=== PATIENT | male | born 1985 | race Hispanic/Latino ===

== ENCOUNTER 2019-07-05 11:31 | Outpatient (CLI) | payer OTHER ==
--- NOTE | 2019-07-05 16:06 | RAD ---
XR Lumbar Spine 2 Or 3 View History: Back pain Comparison: None. Findings: Posterior spinal fusion hardware at L5-S1. Low-grade dextro scoliosis lumbar spine. Mild narrowing of the L2-3 and L3-4 disc spaces. Moderate L3-L4 circumferential disc osteophyte compl ex. No hardware complication is appreciated. No abnormal calcifications project over the renal shadows. Impression: 1. Satisfactory postoperative appearance. 2. Mild scoliosis and degenerative changes described, greatest at L3-L4.
== END 2019-07-05 11:32 | disposition home or self-care (01) ==
LOC: BICRAD 11:31
PROVIDERS: ATTEND Family Medicine
DX: M54.9 Dorsalgia, unspecified (principal); Z98.890 Other specified postprocedural states; M41.9 Scoliosis, unspecified; M47.816 Spondylosis without myelopathy or radiculopathy, lumbar region
CPT/HCPCS: 72100

== ENCOUNTER 2019-10-08 10:21 | Emergency (ER) | payer SELFPAY ==
--- NOTE | 2019-10-08 12:05 | RAD ---
EXAM: XR Lumbar Spine 2 Or 3 View PROVIDED CLINICAL HISTORY: Low back pain. History of prior back surgery. Patient unable to straighten back after bending over on e day ago. COMPARISON: 07/05/2019 FINDINGS: Postoperative changes related to posterior fusion at the lumbosacral junction are again noted with bi pedicular screws and posterior rods transfixing this level. No hardware complication is seen. Scattered osteophytes are again seen in the lumbar spine. Straightening of the normal lumbar curvatur e is again seen. No fracture or subluxation is seen. There has been no interval change compared to the prior exam. IMPRESSION: Stable postoperative and degenerative changes of the lumbar spine.
[2019-10-08] MEDS ORDERED: Ketorolac Tromethamine 30 MG/ML VIAL ONE (12:07)
== END 2019-10-08 12:25 | disposition home or self-care (01) ==
LOC: ERS 10:21 → EDBD 10:21 → ERS 12:25
DX: M54.5 Low back pain (principal); F17.210 Nicotine dependence, cigarettes, uncomplicated
CPT/HCPCS: 72100; 96372; J1885

== ENCOUNTER 2020-03-21 16:53 | Emergency (ER) | payer SELFPAY ==
[2020-03-21] MEDS ORDERED: Fentanyl 100 MCG/2 ML VIAL ONE ×3 (17:12→20:01)
[2020-03-21] MEDS ORDERED: Lidocaine 1% (PF) 30 ML VIAL ONE (17:13)
--- NOTE | 2020-03-21 18:43 | RAD ---
XR Hand Lt 3 View STANDARD History: Injury. Comparison: None. Findings: Open fracture laceration and subluxation through the thumb interphalangeal joint. There is a longitudinal split fracture of the distal phalanx thumb. Extensive comminution. Punctate 1 x 2 mm radiopaque foreign object within the thenar eminence separate from the laceration. Mild volar subluxa tion of the distal phalanx. Impression: 1. Open fracture subluxation thumb proximal interphalangeal joint with comminuted intra-articular fra cture through the distal phalanx. 2. 1 x 2 mm linear radiopaque foreign object within the thenar soft tissues separate from the lacerat ion.
[2020-03-21] MEDS ORDERED: Lorazepam 2 MG/ML VIAL ONE ×2 (18:49→18:56)
[2020-03-21] MEDS ORDERED: cefOXitin Sodium/Dextrose 2 GM/50 ML BAG ONE (18:49)
[2020-03-21] MEDS ORDERED: Boostrix 0.5 ML (Tdap) VIAL ONE (18:49)
[2020-03-21] MEDS ORDERED: Bupivacaine 0.25% 10 ML VIAL ONE (19:06)
== END 2020-03-21 20:35 | disposition home or self-care (01) ==
LOC: ERS 16:53
DX: S62.522B Displaced fracture of distal phalanx of left thumb, initial encounter for open fracture (principal); F17.210 Nicotine dependence, cigarettes, uncomplicated; W31.2XXA Contact with powered woodworking and forming machines, initial encounter
CPT/HCPCS: 29125; 90471; 90715; 96365; 96375; 96376; J0694; J2001; J2060; J3010; S0020

== ENCOUNTER 2020-03-22 11:39 | Outpatient (CLI) | payer SELFPAY ==
[2020-03-22 13:00] LABS: SARS-CoV-2 NAA Rapid Test Not Detected (NotDetected)
== END 2020-03-22 11:40 | disposition home or self-care (01) ==
LOC: LABBT 11:39
PROVIDERS: ATTEND Family Medicine
DX: Z01.812 Encounter for preprocedural laboratory examination (principal); Z20.828 Contact with and (suspected) exposure to other viral communicable diseases
CPT/HCPCS: U0002

== ENCOUNTER 2020-03-22 12:25 | Day surgery (SDC) | payer SELFPAY ==
[~2020-03-22 12:25] MED LIST: Dexamethasone 20 MG/5 ML VIAL ONE; Ketorolac Tromethamine 30 MG/ML VIAL ONE; Lidocaine 1% PF 5 ML VIAL ONE; Ondansetron PF 4 MG/2 ML Vial ONE; PHENYLEPHRINE-NS 100 MCG/ML 10 ML SYRINGE ONE; PROPOFOL 200 MG/20 ML VIAL ONE
[2020-03-22] MEDS ORDERED: Fentanyl 100 MCG/2 ML VIAL ONE ×3 (13:37→15:49)
[2020-03-22] MEDS ORDERED: Lidocaine 1% (PF) 30 ML VIAL ONE (13:57)
[2020-03-22] MEDS ORDERED: diphenhydrAMINE 50 MG/ML VIAL ONE (16:07)
[2020-03-22] MEDS ORDERED: HYDROcodone/Acetaminophen 5/325 mg Tablet ONE (16:52)
--- NOTE | 2020-03-23 10:10 | OP ---
DATE OF PROCEDURE: 03/22/2020 PREOPERATIVE DIAGNOSIS: Nearly complete amputation of left thumb at the level of distal interphalangeal joint. POSTOPERATIVE DIAGNOSIS: Nearly complete amputation of left thumb at the level of distal interphalangeal joint. PROCEDURES PERFORMED: 1. Debridement of soft tissue and bone, left thumb distal phalanx. 2. Washout, left thumb. 3. Removal of nail plate, left thumb. 4. Nailbed repair, left thumb. 5. Repair of complex laceration, left thumb. 6. Splint application to left thumb for treatment of left distal phalanx fracture. ANESTHESIA: General and local. TOURNIQUET TIME: 15 minutes. ESTIMATED BLOOD LOSS: Less than 5 mL. FINDINGS: There was a severely comminuted fracture involving the distal phalanx, which was intra-articular. There was partial laceration of the FPL tendon as well. There was laceration in the nailbed and avulsion in the nail plate. There was almost a near complete laceration in the left thumb at the level of DIP joint. IMPLANTS: None. CONDITION: Stable. 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 Yesterday evening, he was seen at [facility] ER and his wound was irrigated and he was splinted after x-ray showed distal phalanx fracture. He was given antibiotics and his tetanus was up-to-date. I saw him in the clinic today after he was referred to my office for further care and treatment of his injury. He was accompanied by his . Clinically, it looked like he had a near complete amputation of the tip of his left thumb at the level of DIP joint. It did appear to be perfusing barely; however, did have pretty good capillary refill and there was good bleeding from the tissue. I recommended OR washout, debridement, possible repair of nailbed, removal of nail plate, possible tendon repair, nerve repair, and pinning of the left thumb. I discussed all the risks and goals associated with the surgery. I did not offer any guarantees nor any implied. I even told the patient and his that possibility of requiring a revision amputation if his left thumb tip does not survive the injury. They voiced understanding of all this and agreed to proceed. DESCRIPTION OF PROCEDURE: He was given preoperative antibiotics. He was brought to the operating room and placed supinely on the operating room table. Left upper extremity tourniquet was applied. The left upper extremity was prepped and draped under sterile aseptic condition after general anesthesia was induced. Left upper extremity was exsanguinated by gravity. The tourniquet was inflated at 250 mmHg. My attention was directed towards removing the nail plate first and was removed and elevated bluntly and carefully off the nailbed. It was a pretty mangled nail plate, therefore non-reducible and there was nailbed injury. There was an open wound and significant distal phalanx fractures within the wound. I debrided the distal phalanx fractures, which would devitalize. I irrigated the wound thoroughly using over a liter of sterile saline solution. The wound appeared to be pretty clean for the most part. There were no foreign bodies or evidence of an infection. The FPL tendon was lacerated, but involved about 15% of the tendon. Majority of the tendon was intact over the base of distal phalanx. Proximal phalanx articulation appeared to be okay. I began by repairing the stellate laceration using 4-0 nylon suture and then I repaired the nailbed using a 5-0 chromic suture. This was a near complete amputation. It was hanging on by skin bridge, most likely the neurovascular pedicle to the ulnar neurovascular digital bundle. The laceration involving the radial neurovascular bundle occurred at the level or beyond the trifurcation beyond the IP joint, therefore it was irreparable and additionally the digital artery was thrombosed as well over the radial neurovascular digital bundle. Tourniquet was deflated. Good bleeding tissue was encountered. The thumb appeared to have decent capillary refill. It should be noted that I administered a digital ring block using 1% plain lidocaine to the left thumb prior to proceeding and I also added some more lidocaine to the thumb following the procedure to help with postoperative pain. Xeroform was applied gently over the wound along with bulky dressing and it was protected and the limb was formed functional. He was extubated and transported back to the recovery area in stable condition. His was given a script for Keflex 500 mg p.o. q.6 h. to take for 7 days and then [place] 5/325 one to two tablets p.o. q.6 h. p.r.n. pain, 30 pills are prescribed. I will see him back in the clinic next week for repeat x-ray. The splint wound care will most likely be removed, he has stitches around 8 to 10 days. There was possibility that his thumb tip may not survive and he may require an amputation. I discussed this with the patient and his . Job ID: [id number]
== END 2020-03-22 17:07 | disposition home or self-care (01) ==
LOC: SDC 12:25
PROVIDERS: ATTEND Surgery Surgery of the Hand
PROC: 0PBS0ZZ Excision of Left Thumb Phalanx, Open Approach (ICD-10-PCS; principal; 2020-03-22)
PROC: 0HQQXZZ Repair Finger Nail, External Approach (ICD-10-PCS; principal; 2020-03-22)
DX: S68.022A Partial traumatic metacarpophalangeal amputation of left thumb, initial encounter (principal); Z20.828 Contact with and (suspected) exposure to other viral communicable diseases; W31.2XXA Contact with powered woodworking and forming machines, initial encounter; Y99.0 Civilian activity done for income or pay
CPT/HCPCS: J0690; J1100; J1200; J1885; J2001; J2405; J2704; J3010

== ENCOUNTER 2020-04-02 18:07 | Inpatient (IN) | payer SELFPAY ==
[~2020-04-02 18:07] MED LIST changes: -Dexamethasone 20 MG/5 ML VIAL ONE; +Iopamidol-370 76% 500 ML 1 ML ONE; -Ketorolac Tromethamine 30 MG/ML VIAL ONE; -Lidocaine 1% PF 5 ML VIAL ONE; -Ondansetron PF 4 MG/2 ML Vial ONE; -PHENYLEPHRINE-NS 100 MCG/ML 10 ML SYRINGE ONE; -PROPOFOL 200 MG/20 ML VIAL ONE
--- NOTE | 2020-04-02 18:49 | RAD ---
3 views left thumb: 04/02/2020 COMPARISON: 03/21/2020 HISTORY: Injury, trauma, pain FINDINGS: There is diffuse soft tissue swelling involving the thumb, most prominent distally. As seen on the prior examination there is a comminuted fracture involving the lateral aspect of the distal first phalanx with multiple small fracture fragments and intra-articular extension. IMPRESSION: Comminuted displaced intra-articular fracture involving the lateral aspect of the first d istal phalanx extending into the first interphalangeal joint, as seen on prior imaging. Diffuse nonspecific soft tissue swelling. This swelling may be on the basis of trauma and/or infection. No llamas bcutaneous gas.
[2020-04-02 18:57] LABS: #Basophils 0.1 thou/uL (0.0-0.2); #Eosinphils 0.3 thou/uL (0.0-0.7); #Lymphocytes 3.9 thou/uL (1.20-3.40); #Monocytes 0.8 thou/uL (0.11-0.59); %Basophils 1.1 % (0.0-1.0); %Eosinophils 2.8 % (0.0-10.0); %Lymphocytes 32.1 % (21.0-51.0); %Monocytes 6.3 % (0.0-10.0); %Neutrophils 57.7 % (42.0-75.0); Hemoglobin 15.3 g/dL (14.0-18.0); Mean Corpuscular HGB CONC 34.6 g/dL (32.0-36.0); Mean Corpuscular Hemoglobin 31.8 pg (27.0-31.0); Mean Corpuscular Volume 91.9 fL (78.0-98.0); Mean Platelet Volume 6.7 fL (7.4-10.4); Platelet Count 383 thou/uL (130-400); RBC Distribution Width 11.7 % (11.5-14.5); Red Blood Cell (RBC) Count 4.81 mill/uL (4.70-6.10); White Blood Cell (WBC) Count 12.2 thou/uL (4.8-10.8)
[2020-04-02] MEDS ORDERED: Morphine 4 MG/ML VIAL ONE ×2 (19:09→20:44)
[2020-04-02 19:26] LABS: ALT (SGPT) 54 U/L (8-55); AST (SGOT) 28 U/L (5-34); Alkaline Phosphatase 88 U/L (40-110); Anion Gap 16 mmol/L (10-20); BUN (Urea Nitrogen) 13 mg/dL (8.9-20.6); Bilirubin, Total 0.3 mg/dL (0.2-1.2); Calc. Creatinine Clearance 0 mL/min (70-130); Calcium 8.8 mg/dL (7.8-10.44); Carbon Dioxide 21 mmol/L (22-29); Chloride 106 mmol/L (98-107); Estimated GFR-MDRD Greater than 90; Globulin 3.3 g/dL (2.4-3.5); Glucose 185 mg/dL (70-105); Potassium 3.8 mmol/L (3.5-5.1); Protein, Total 7.3 g/dL (6.0-8.3); Sodium 139 mmol/L (136-145)
[2020-04-02] MEDS ORDERED: Cefepime 2 GM VIAL ONE (19:34)
[2020-04-02] MEDS ORDERED: Vancomycin 1.5 GRAM/300 ML BAG 1.5 GM in Premix Bag 1 BAG IVPB SCH (19:45)
--- NOTE | 2020-04-02 20:19 | CT ---
CTA THORAX WITH CONTRAST: 04/02/20 (Computed Tomographic Angiography, chest(noncoronary) with contrast material, and image postprocessin g) (PE protocol) HISTORY: 34-year-old male with chest pain. TECHNIQUE: IV injection of iodinated contrast: 100 mL Isovue 370. Scan acquisition timing attempted to coincide with iodinated contrast bolus reaching maximal density in pulmonary arteries. 3D MIP reconstructions. FINDINGS: Pulmonary thromboembolism: None. Lungs: Clear. Pneumothorax: None. Pleural effusion: None. Thoracic aorta: No aneurysm or dissection. Mediastinum: No lymphadenopathy or other mass. Annamaria: No lymphadenopathy or other mass. IMPRESSION: Normal. jn[] POS: JIN
[2020-04-02 20:56] LABS: Bilirubin Negative (Negative); Blood, Urine Negative (Negative); Clarity Clear (Clear); Glucose, Urine (Dipstick) Normal (Negative); Ketone, Urine Negative (Negative); Leukocyte Negative Leu/uL (Negative); Nitrite Negative (Negative); Protein, Urine (Dipstick) Negative (Neg-Trace); Specific Gravity, Urine 1.032 (1.002-1.036); Urobilinogen Normal mg/dL (Less than 2); pH, Urine 5.5 (5.0-9.0)
[2020-04-02] MEDS ORDERED: Ketorolac Tromethamine 30 MG/ML VIAL ONE (21:27)
[2020-04-02 22:15] LABS: Lactic Acid 1.7 mmol/L (0.5-2.2)
[2020-04-02 22:22] LABS: Troponin I Less than 0.010 ng/mL (< 0.028)
[2020-04-02] MEDS ORDERED: Senokot S 8.6-50 MG TAB PO PRN (22:30)
[2020-04-02] MEDS ORDERED: Morphine 2 MG/ML VIAL SLOW IVP PRN (22:32)
--- NOTE | 2020-04-02 22:51 | PDOC.HHP ---
Hospitalist HPI - History of Present Illness Left thumb pain and swelling History of Present Illness: 34M presents to the ED for evaluation of left thumb pain and swelling. Reports he cut his thumb earlier this month on a table saw and went to the OR on 03/22/2020 for a surgical repair and debridement. He finished his antibiotics 3 days ago. Reports the pain and swelling started this evening with some serous drainage. He also c/o of chest pain, EKG with no significant changes and [address] Dash, the orthopedic surgeon was contacted from the ED and he asked for patient to be admitted for IV antibiotics and pain medicine and he would come see patient in the AM. ED Course: ED labs: Initial lactic acid was 3, IV fluids were given, is down to 1.7, WBC 12.2, glucose 185; left thumb xray with soft tissue swelling, no gas present, and CTA chest was negative. Hospitalist ROS - Review of Systems Constitutional: reports: fever, chills Eyes: denies: pain, vision change, conjunctivae inflammation, eyelid inflammation, redness, other ENT: denies: ear pain, ear discharge, nose pain, nose discharge, nose congestion, mouth pain, mouth swelling, throat pain, throat swelling, other Respiratory: denies: cough, dry, shortness of breath, hemoptysis, SOB with excertion, pleuritic pain, sputum, wheezing, other Cardiovascular: reports: chest pain Gastrointestinal: denies: nausea, vomiting, abdominal pain, diarrhea, constipation, melena, hematochezia, other Musculoskeletal: reports: hand pain Neurological: denies: weakness, numbness, incoordination, change in speech, confusion, seizures, other - Medication Medications: None Hospitalist History - Past Medical History Cardiac: reports: no pertinent history Pulmonary: reports: no pertinent history 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 Gastrointestinal: reports: no pertinent history Heme/Onc: reports: no pertinent history Hepatobiliary: reports: no pertinent history Musculoskeletal: reports: Chronic low back pain - Past Surgical History Past Surgical History: reports: Appendectomy, Other Other Surgical History: 2 spinal surgeries; left thumb surgery - Family History Family History: reports: no pertinent history - Social History Smoking Status: Current every day smoker Alcohol: reports: Occassional Drugs: reports: none Activity level: independent ambulation - Exam Eye: PERRL ENT: normocephalic atraumatic Neck: supple, no JVD Heart: RRR Respiratory: CTAB Gastrointestinal: soft, non-tender Extremities - other findings: left thumb with edema; sutures intact; ROM limited due to swelling/injury; Skin: normal turgor Neurological: cranial nerve grossly intact Hospitalist Results - Labs Result Diagrams: 04/02/20 18:40 04/02/20 18:40 Lab results: WBC 12.2 thou/uL (4.8-10.8) H 04/02/20 18:40 Hgb 15.3 g/dL (14.0-18.0) 04/02/20 18:40 Hct 44.2 % (42.0-52.0) 04/02/20 18:40 MCV 91.9 fL (78.0-98.0) 04/02/20 18:40 Plt Count 383 thou/uL (130-400) 04/02/20 18:40 Neutrophils % 57.7 % (42.0-75.0) 04/02/20 18:40 Sodium 139 mmol/L (136-145) 04/02/20 18:40 Potassium 3.8 mmol/L (3.5-5.1) 04/02/20 18:40 Chloride 106 mmol/L (98-107) 04/02/20 18:40 Carbon Dioxide 21 mmol/L (22-29) L 04/02/20 18:40 BUN 13 mg/dL (8.9-20.6) 04/02/20 18:40 Creatinine 0.83 mg/dL (0.7-1.3) 04/02/20 18:40 Glucose 185 mg/dL (70-105) H 04/02/20 18:40 Lactic Acid 1.7 mmol/L (0.5-2.2) 04/02/20 21:45 Calcium 8.8 mg/dL (7.8-10.44) 04/02/20 18:40 Total Bilirubin 0.3 mg/dL (0.2-1.2) 04/02/20 18:40 AST 28 U/L (5-34) 04/02/20 18:40 ALT 54 U/L (8-55) 04/02/20 18:40 Alkaline Phosphatase 88 U/L (40-110) 04/02/20 18:40 Troponin I Less than 0.010 ng/mL (< 0.028) 04/02/20 21:45 Serum Total Protein 7.3 g/dL (6.0-8.3) 04/02/20 18:40 Albumin 4.0 g/dL (3.5-5.0) 04/02/20 18:40 Urine Ketones Negative mg/dL (Negative) 04/02/20 20:46 Urine Blood Negative (Negative) 04/02/20 20:46 Urine Nitrite Negative (Negative) 04/02/20 20:46 Ur Leukocyte Esterase Negative Padmini/uL (Negative) 04/02/20 20:46 Hospitalist H&P A/P - Problem (1) Fracture of thumb, left, open Code(s): S62.502B - FRACTURE OF UNSP PHALANX OF LEFT THUMB, INIT FOR OPN FX St atus: Acute (2) Sepsis Code(s): A41.9 - SEPSIS, UNSPECIFIED ORGANISM Status: Acute (3) Smoker Code(s): F17.200 - NICOTINE DEPENDENCE, UNSPECIFIED, UNCOMPLICATED Status: Chronic - Plan Plan: #possible infection of left thumb s/p injury and surgical intervention Zosyn 3.375 IVPB q6h Morphine for pain control IV fluids; NS 75ml/hr Orthopedic consult NPO after midnight OT consult Repeat labs in AM DVT and PUD prevention Case discussed with Dr. Herbert, agrees to plan
[2020-04-03] MEDS: Sodium Chloride 0.9% 1,000 ML IV SCH ×3 (00:19→20:25)
[2020-04-03] MEDS: Piperacillin/Tazobactam 3.375 GM in Sodium Chloride 0.9% 100 ML IVPB SCH ×5 (00:44→23:30)
[2020-04-03] MEDS: Morphine 4 MG/ML VIAL SLOW IVP PRN ×4 (00:45→20:16)
[2020-04-03 01:31] VITALS: BMI 25.9
[2020-04-03 03:12] LABS: SARS-CoV-2 MS2 Positive; SARS-CoV-2 N Gene Negative; SARS-CoV-2 S Gene Negative; SARS-CoV-2 by NAA Not Detected (NotDetected); SARS-CoV-2 orf1ab Negative
[2020-04-03] MEDS: Acetaminophen 325 MG TAB PO PRN (04:16)
[2020-04-03 07:00] LABS: #Eosinphils 0.3 thou/uL (0.0-0.7); #Monocytes 0.7 thou/uL (0.11-0.59); #Neutrophils 7.4 thou/uL (1.40-6.50); %Basophils 0.4 % (0.0-1.0); %Eosinophils 2.8 % (0.0-10.0); %Lymphocytes 19.5 % (21.0-51.0); %Monocytes 6.5 % (0.0-10.0); %Neutrophils 70.9 % (42.0-75.0); Hemoglobin 13.9 g/dL (14.0-18.0); Mean Corpuscular HGB CONC 34.3 g/dL (32.0-36.0); Mean Corpuscular Hemoglobin 32.9 pg (27.0-31.0); Mean Corpuscular Volume 95.9 fL (78.0-98.0); Mean Platelet Volume 6.7 fL (7.4-10.4); Platelet Count 306 thou/uL (130-400); RBC Distribution Width 11.7 % (11.5-14.5); Red Blood Cell (RBC) Count 4.23 mill/uL (4.70-6.10); White Blood Cell (WBC) Count 10.4 thou/uL (4.8-10.8)
[2020-04-03 07:19] LABS: Anion Gap 11 mmol/L (10-20); BUN (Urea Nitrogen) 9 mg/dL (8.9-20.6); Calc. Creatinine Clearance 150 mL/min (70-130); Calcium 8.2 mg/dL (7.8-10.44); Carbon Dioxide 20 mmol/L (22-29); Chloride 111 mmol/L (98-107); Estimated GFR-MDRD Greater than 90; Glucose 106 mg/dL (70-105); Sodium 138 mmol/L (136-145)
[2020-04-03] MEDS: Famotidine 20 MG TAB PO SCH ×2 (07:58→20:16)
[2020-04-03] MEDS ORDERED: Lidocaine 1% PF 5 ML VIAL ONE (09:41)
[2020-04-03] MEDS ORDERED: Ketorolac Tromethamine 30 MG/ML VIAL ONE (09:41)
[2020-04-03] MEDS ORDERED: PROPOFOL 200 MG/20 ML VIAL ONE (09:41)
[2020-04-03] MEDS ORDERED: SUGAMMADEX SODIUM 200 MG/2 ML VIAL ONE (10:01)
[2020-04-03] MEDS ORDERED: Fentanyl 100 MCG/2 ML VIAL ONE ×2 (10:01→13:14)
[2020-04-03] MEDS ORDERED: methylPREDNISolone Acetate 40 mg/ml Vial ONE (10:02)
[2020-04-03] MEDS ORDERED: EPINEPHrine 1 MG/ML AMP ONE (10:09)
[2020-04-03] MEDS ORDERED: Bupivacaine 0.25% HCL 30 ML VIAL ONE (10:09)
[2020-04-03] MEDS ORDERED: Sodium Chloride 0.9% 10 ML ONE (10:09)
[2020-04-03] MEDS ORDERED: Lidocaine 1% w/Epinephrine 1:100K 20 ML VIAL ONE (10:09)
[2020-04-03] MEDS ORDERED: Ketorolac Tromethamine 30 MG/ML VIAL IVP SCH (10:30)
[2020-04-03] MEDS ORDERED: Sodium Chloride 0.9% 100 ML ONE (10:56)
[2020-04-03] MEDS ORDERED: Lidocaine 1% (PF) 30 ML VIAL ONE ×2 (12:13→13:11)
--- NOTE | 2020-04-03 13:24 | CON ---
DATE OF CONSULTATION: 04/03/2020 History The patient is a 34-year-old male who was admitted from the ER yesterday, presented to the ER with increased pain and swelling in his left thumb. The ER staff sent a sent for labs, which showed a white blood cell count of 12.2. They stated that he was tachycardic as well. The ER staff was worried about potential sepsis. He was admitted to the Internal Medicine Service and started on vancomycin and Zosyn overnight. I saw him this afternoon late morning in the holding area. He was resting comfortably in his bed and in no acute distress. Physical Exam: [facility] General: A A and O X 3 left hand/wrist/forearm: His left thumb looks somewhat edematous directly over the wound but no fusiform swelling and unchanged compared to his postoperative examination. It looked like he was perfusing well. I did not appreciate any purulent drainage. He was nontender to palpation on clinical examination over the flexor tendon, but directly tender to palpation over the tip of the thumb in the area of his injury. There was some mild reddish fluid draining from the distal part of the wound. There was no exposed bone or tendon appreciated. X-rays were reviewed by me. Assessment and plan left thumb tablesaw injury with post op pain and concern for post op infection We had a discussion about potential amputation at DIP joint versus repeat washout. I recommended an attempt at a washout of the left thumb. I discussed all risks and goals associated with the surgery with both the patient and his who was present. They voiced understanding and agreed to proceed with surgery this afternoon/morning. Job ID: [id number] [facility]
--- NOTE | 2020-04-03 13:49 | OP ---
DATE OF PROCEDURE: 04/03/2020 PREOPERATIVE DIAGNOSIS: Left thumb table saw injury. POSTOPERATIVE DIAGNOSIS: Left thumb table saw injury. PROCEDURE PERFORMED: Left thumb washout, and debridement of skin and soft tissue. ANESTHESIA: General and local. COREMAKER PIPE: Anselmo Alonso. FINDINGS: There was no pus or purulent drainage noted within the soft tissues. The thumb appeared to be vascularly intact as well. IMPLANTS: None. TOURNIQUET TIME: 14 minutes. ESTIMATED BLOOD LOSS: Less than 5 mL. CONDITION: Stable. INDICATIONS: The patient is a 34-year-old male, seen today. He was admitted by the ER staff to the Internal Medicine Service overnight with thoughts of sepsis secondary to his left thumb injury. I discussed all risks and goals associated with today's surgery with the patient and his . They voiced understanding and agreed to proceed with the left thumb washout, debridement, and possible amputation at the IP joint. DESCRIPTION OF PROCEDURE: The patient was brought to the operating room, placed supinely on the operating room table. Time-out was performed. Antibiotics had already been given as scheduled. General anesthesia was induced by the Anesthesia Team. The left upper extremity was then prepped and draped under sterile aseptic conditions. The left upper extremity was exsanguinated by gravity and the tourniquet was inflated to 250 mmHg. A forearm tourniquet was applied. Digital ring block using 1% plain lidocaine was injected into the left thumb. Prior to proceeding, the sutures from the patient's previous surgery were removed and discarded away from the field. The laceration over the thumb was opened bluntly and carefully using tenotomy scissors. There was no pus or purulence or signs of infection in the subcutaneous tissues. There was no pus within the flexor sheath. I irrigated the wound thoroughly with 3 L of sterile saline solution. I then loosely repaired the laceration site with 4-0 nylon. The tourniquet was deflated. Xeroform was applied over the wound. The thumb appeared to be vascularly intact upon deflation of the tourniquet with good bleeding tissue. There was a small edge along a portion of the wound that had some dry scab and necrosis and this was debrided. It was less than 3 mm in size and it was only skin that was debrided. The Xeroform was applied over the wound along with bulky dressing. The patient was extubated and transported back to the recovery area in stable condition. The patient may be discharged from the hospital potentially tomorrow, probably best that he stay overnight and get another set of antibiotics and further workup for his tachycardia and white cell count. I will be happy to see him and treat him on an outpatient basis in the clinic next week and he should remain nonweightbearing and avoid pushing or pulling activities and he will be discharged on oral antibiotics, possibly tomorrow. Job ID: [id number]
[2020-04-03] MEDS: Ketorolac Tromethamine 30 MG/ML VIAL IVP PRN ×2 (16:03→23:40)
[2020-04-03] MEDS ORDERED: Ondansetron PF 4 MG/2 ML Vial IVP PRN (16:57)
[2020-04-03] MEDS ORDERED: diphenhydrAMINE 50 MG/ML VIAL IVP PRN (16:57)
--- NOTE | 2020-04-03 19:11 | PDOC.HOSPP ---
- Subjective Encounter Date: 04/03/20 Encounter Time: 12:00 Subjective: Patient seen for follow-up regarding sepsis. Reports pain in his left thumb. Denies chest pain or shortness of breath. - Objective Vital Signs & Weight: Vital Signs (12 hours) Temp Pulse Resp BP Pulse Ox 04/03/20 17:00 98.0 F 73 16 111/73 96 04/03/20 16:11 97.6 F 76 20 115/68 98 04/03/20 13:30 97.3 F L 76 16 128/87 96 04/03/20 07:15 98.0 F 68 18 117/76 99 Weight Weight 165 lb 5.547 oz I&O: 04/02/20 04/03/20 04/04/20 06:59 06:59 06:59 Intake Total 2280 Balance 2280 Result Diagrams: 04/03/20 06:16 04/03/20 06:16 Additional Labs: Labs and MAR reviewed by me Hospitalist ROS - Review of Systems Cardiovascular: denies: chest pain, palpitations, orthopnea, paroxysmal noc. dyspnea, edema, light headedness Gastrointestinal: denies: nausea, vomiting, abdominal pain, diarrhea, constipati on, melena, hematochezia - Medication Medications: Active Medications Generic Name Dose Route Start Last Admin Trade Name Freq PRN Reason Stop Dose Admin Acetaminophen 650 mg 04/02/20 22:30 04/03/20 04:16 Acetaminophen 325 Mg Tab PO 650 mg Q4H PRN Administration Headache/Fever/Mild Pain (1-3) Diphenhydramine HCl 25 mg 04/03/20 16:57 04/03/20 17:07 Diphenhydramine 50 Mg/Ml Vial IVP 25 mg Q6H PRN Administration Itching Famotidine 20 mg 04/03/20 09:00 04/03/20 07:58 Famotidine 20 Mg Tab PO Not Given BID MYKE Piperacillin Sod/Tazobactam 100 mls @ 200 mls/hr 04/02/20 23:59 04/03/20 16:53 Sod 3.375 gm/ Sodium Chloride IVPB 100 mls Q6HR MYKE Administration Sodium Chloride 1,000 mls @ 75 mls/hr 04/02/20 22:30 04/03/20 05:23 Normal Saline 0.9% IV 1,000 mls .[id number] MYKE Administration Ketorolac Tromethamine 15 mg 04/03/20 18:00 04/03/20 16:03 Ketorolac Tromethamine 30 Mg/Ml Vial IVP 04/08/20 18:01 15 mg Q8H PRN Administration Pain Morphine Sulfate 2 mg 04/02/20 22:32 04/03/20 16:04 Morphine 2 Mg/Ml Vial SLOW IVP 2 mg Q4H PRN Administration Moderate Pain (4-6) Morphine Sulfate 4 mg 04/02/20 22:32 04/03/20 08:02 Morphine 4 Mg/Ml Vial SLOW IVP 4 mg Q4H PRN Administration Moderate to Severe Pain (6-10) Ondansetron HCl 4 mg 04/03/20 16:57 04/03/20 17:07 Ondansetron Pf 4 Mg/2 Ml Vial IVP 4 mg Q6H PRN Administration Nausea - Exam General Appearance: awake alert Eye: anicteric sclera Neck: supple Heart: RRR Respiratory: CTAB Gastrointestinal: soft, non-tender Skin: no rashes Skin - other findings: Thumb infection as documented Psychiatric: normal affect, normal behavior Hosp A/P - Plan - Problem (1) Sepsis Code(s): A41.9 - SEPSIS, UNSPECIFIED ORGANISM Status: Acute (2) Fracture of thumb, left, open Code(s): S62.502B - FRACTURE OF UNSP PHALANX OF LEFT THUMB, INIT FOR OPN FX Status: Acute (3) Smoker Code(s): F17.200 - NICOTINE DEPENDENCE, UNSPECIFIED, UNCOMPLICATED Status: Chronic - Plan Continue Zosyn 3.375 IVPB q6h Continue morphine for pain control, add as needed Toradol IV fluids; NS 75ml/hr Orthopedic consult
[2020-04-04] MEDS: Morphine 4 MG/ML VIAL SLOW IVP PRN ×2 (01:00→09:32)
[2020-04-04] MEDS ORDERED: HYDROcodone/Acetaminophen 5/325 mg Tablet PO PRN (02:51)
[2020-04-04] MEDS: Vancomycin 1.5 GRAM/300 ML BAG 1.5 GM in Premix Bag 1 BAG IVPB SCH ×2 (03:54→12:00)
[2020-04-04] MEDS: HYDROcodone/Acetaminophen 5/325 mg Tablet PO PRN ×2 (05:05→11:14)
[2020-04-04] MEDS: Piperacillin/Tazobactam 3.375 GM in Sodium Chloride 0.9% 100 ML IVPB SCH ×2 (05:10→11:15)
[2020-04-04 07:39] VITALS: BP 110/73; TEMP 97.9
[2020-04-04] MEDS: Famotidine 20 MG TAB PO SCH (08:01)
[2020-04-04 08:55] LABS: #Eosinphils 0.5 thou/uL (0.0-0.7); #Lymphocytes 1.7 thou/uL (1.20-3.40); #Monocytes 0.5 thou/uL (0.11-0.59); #Neutrophils 6.3 thou/uL (1.40-6.50); %Basophils 0.5 % (0.0-1.0); %Eosinophils 5.9 % (0.0-10.0); %Lymphocytes 18.6 % (21.0-51.0); %Monocytes 5.4 % (0.0-10.0); %Neutrophils 69.6 % (42.0-75.0); Hemoglobin 14.3 g/dL (14.0-18.0); Mean Corpuscular HGB CONC 34.2 g/dL (32.0-36.0); Mean Corpuscular Hemoglobin 32.6 pg (27.0-31.0); Mean Corpuscular Volume 95.3 fL (78.0-98.0); Mean Platelet Volume 6.4 fL (7.4-10.4); Platelet Count 328 thou/uL (130-400); RBC Distribution Width 11.9 % (11.5-14.5)
[2020-04-04 09:17] LABS: Anion Gap 12 mmol/L (10-20); BUN (Urea Nitrogen) 5 mg/dL (8.9-20.6); Calc. Creatinine Clearance 135 mL/min (70-130); Carbon Dioxide 28 mmol/L (22-29); Chloride 106 mmol/L (98-107); Estimated GFR-MDRD Greater than 90; Glucose 115 mg/dL (70-105); Potassium 4.2 mmol/L (3.5-5.1); Sodium 142 mmol/L (136-145)
[2020-04-04] MEDS: Acetaminophen 325 MG TAB PO PRN (14:27)
--- NOTE | 2020-04-04 15:48 | PDOC.DS.DS ---
Provider - Provider Date of Admission: 04/02/20 21:08 Date of Discharge: 04/04/20 Admitting Provider: Dragan Julien Consultations: Orthopedics (Dr. Dash) Primary Care Physician: NO PCP PROVIDER Course - Hospital Course Hospital Course: Discharge diagnosis: 1. Sepsis 2. Open fracture of left thumb 3. COVID-19 PCR test negative Hospital course: Patient is a pleasant 34-year-old gentleman who was admitted to the hospital on April 02, 2020 for sepsis secondary to infection from open fracture of left thumb. He was seen by hand surgery service. On April 03 he underwent left thumb washout and debridement of skin and soft tissue. He has been cleared for discharge by hand surgery service, he is being discharged with a prescription for Bactrim DS twice daily for 1 week and Tylenol 3 as needed, 15 doses to be dispensed. - Labs Lab Results: 04/04/20 08:44 04/04/20 08:44 Abnormal Lab Results - Last 48 hrs 04/02/20 18:40: Carbon Dioxide 21 L 04/02/20 18:40: WBC 12.2 H, MCH 31.8 H, MPV 6.7 L, Basophils % 1.1 H, Neutrophils # 7.0 H, Lymphocytes # 3.9 H, Monocytes # 0.8 H 04/02/20 18:40: Lactic Acid 3.0 H 04/03/20 06:16: Chloride 111 H, Carbon Dioxide 20 L 04/03/20 06:16: RBC 4.23 L, Hgb 13.9 L, Hct 40.6 L, MCH 32.9 H, MPV 6.7 L, Lymphocytes % 19.5 L, Neutrophils # 7.4 H, Monocytes # 0.7 H 04/04/20 08:44: BUN 5 L 04/04/20 08:44: RBC 4.40 L, Hct 41.9 L, MCH 32.6 H, MPV 6.4 L, Lymphocytes % 18.6 L Microbiology - Entire Visit 04/02/20 20:46 Urine voided Urine Culture - Final NO GROWTH AT 36 HOURS 04/02/20 18:40 Venous blood - Left Arm Blood Culture - Preliminary NO GROWTH AT 48 HOURS 04/02/20 18:40 Venous blood - Right Arm Blood Culture - Preliminary NO GROWTH AT 48 HOURS - Physical Exam Vitals: Vital Signs (12 hours) Temp Pulse Resp BP BP Pulse Ox 04/04/20 07:35 97.9 F 81 18 110/73 100 04/04/20 05:30 97.7 F 75 125/89 98 Weight Weight 165 lb 5.547 oz Physical Exam: The patient was seen and examined on the day of discharge. Patient denies chest pain or shortness of breath. Vital signs are stable. S1 and S2 are heard. Lungs are clear to auscultation bilaterally. Problem - Time spent with Patient (mins): 31 Plan - Discharge Medications Prescriptions: Acetaminophen With Codeine [Tylenol with Codeine #3] 1 tablet PO Q6HR PRN #15 tablet PRN Reason: Pain Sulfamethoxazole/Trimethoprim [Bactrim DS] 1 tab PO BID #14 tab Home Medications: Medication Instructions Recorded Confirmed Type Acetaminophen With Codeine 1 tablet PO Q6HR PRN #15 tablet 04/04/20 Rx [Tylenol with Codeine #3] Sulfamethoxazole/Trimethoprim 1 tab PO BID #14 tab 04/04/20 Rx [Bactrim DS] Allergies: tramadol Allergy (Verified 04/03/20 04:23) - Discharge Instructions Discharge Instructions:: Take Tylenol 3 and Bactrim DS as prescribed. - Follow up Plan Referrals: Tony Dash MD [Active] - 10 Days PROVIDER,NO PCP [Primary Care Provider] - 3 Days Disposition: HOME Quality - Care Measures CORE MEASURES:: N/A
== END 2020-04-04 16:26 | disposition home or self-care (01) | DRG 856 ==
LOC: ERS 18:07 → T4-B 21:08
PROVIDERS: ADMIT Internal Medicine; ATTEND Internal Medicine
PROC: 0JBK0ZZ Excision of Left Hand Subcutaneous Tissue and Fascia, Open Approach (ICD-10-PCS; principal; 2020-04-03)
DX: T81.40XA Infection following a procedure, unspecified, initial encounter (principal); A41.9 Sepsis, unspecified organism; S62.502B Fracture of unspecified phalanx of left thumb, initial encounter for open fracture; Z20.828 Contact with and (suspected) exposure to other viral communicable diseases; T81.44XA Sepsis following a procedure, initial encounter; G89.29 Other chronic pain; L03.012 Cellulitis of left finger; F17.210 Nicotine dependence, cigarettes, uncomplicated; Z88.8 Allergy status to other drugs, medicaments and biological substances; M54.5 Low back pain; Z90.49 Acquired absence of other specified parts of digestive tract
CPT/HCPCS: 36415; 71275; 80048; 80053; 81003; 83605; 84484; 85025; 87040; 87086; 87635; 93005; 96374; 96375; 96376; J0171; J0690; J0692; J1200; J1885; J2001; J2270; J2405; J2543; J2920; J3010; J3370; J3490; Q9967; S0020; U0003

== ENCOUNTER 2020-05-20 16:51 | Emergency (ER) | payer SELFPAY, OTHER ==
--- NOTE | 2020-05-20 17:11 | RAD ---
3 views of the left thumb: 05/20/2020 COMPARISON: 04/22/2020 HISTORY: Recent thumb amputation, tingling and sharp pain FINDINGS: The patient is status post amputation of the distal phalanx of the thumb. No subcutaneous g as or acute fracture is evident. There is a punctate density overlying the soft tissues dorsal to the distal aspect of the proximal phalanx measuring 2 mm suggesting a stable calcification or fractur e fragment. A similar linear density is seen medial to the base of the first proximal phalanx, stable as well. IMPRESSION: Postoperative changes as detailed above. No acute fracture or subcutaneous gas.
[2020-05-20] MEDS ORDERED: Clindamycin/D5W 900 mg/50 ml Premix Bag ONE (17:52)
[2020-05-20 18:06] LABS: #Basophils 0.1 thou/uL (0.0-0.2); #Eosinphils 0.3 thou/uL (0.0-0.7); #Lymphocytes 3.4 thou/uL (1.20-3.40); #Monocytes 0.8 thou/uL (0.11-0.59); #Neutrophils 5.7 thou/uL (1.40-6.50); %Basophils 0.8 % (0.0-1.0); %Eosinophils 2.5 % (0.0-10.0); %Lymphocytes 33.4 % (21.0-51.0); %Monocytes 7.6 % (0.0-10.0); %Neutrophils 55.8 % (42.0-75.0); Hemoglobin 15.7 g/dL (14.0-18.0); Mean Corpuscular HGB CONC 35.9 g/dL (32.0-36.0); Mean Corpuscular Hemoglobin 33.3 pg (27.0-31.0); Mean Corpuscular Volume 92.8 fL (78.0-98.0); Mean Platelet Volume 6.8 fL (7.4-10.4); Platelet Count 420 thou/uL (130-400); RBC Distribution Width 11.8 % (11.5-14.5); Red Blood Cell (RBC) Count 4.72 mill/uL (4.70-6.10); White Blood Cell (WBC) Count 10.3 thou/uL (4.8-10.8)
[2020-05-20 18:26] LABS: Anion Gap 17 mmol/L (10-20); BUN (Urea Nitrogen) 14 mg/dL (8.9-20.6); Calc. Creatinine Clearance 0 mL/min (70-130); Calcium 9.3 mg/dL (7.8-10.44); Carbon Dioxide 21 mmol/L (22-29); Chloride 105 mmol/L (98-107); Glucose 148 mg/dL (70-105); Sodium 139 mmol/L (136-145)
[2020-05-20] MEDS ORDERED: Morphine 4 MG/ML VIAL ONE (19:05)
== END 2020-05-20 19:35 | disposition home or self-care (01) ==
LOC: ERS 16:51
DX: G89.18 Other acute postprocedural pain (principal); M79.645 Pain in left finger(s); Z87.891 Personal history of nicotine dependence
CPT/HCPCS: 36415; 80048; 85025; 85652; 86140; 96365; 96375; J2270; J3490

== ENCOUNTER 2020-05-23 11:24 | Emergency (ER) | payer OTHER, SELFPAY ==
--- NOTE | 2020-05-23 12:18 | RAD ---
LEFT HAND 3 VIEWS: HISTORY: Discharge, odor and pain of the left thumb FINDINGS: Interval changes of amputation of the first digit at the level of the IP joint has occurred since 03/21/2020. No acute fracture, dislocation, bony destruction or periosteal reaction is seen. IMPRESSION: No acute process.
[2020-05-23 12:53] LABS: #Basophils 0.1 thou/uL (0.0-0.2); #Eosinphils 0.2 thou/uL (0.0-0.7); #Lymphocytes 2.7 thou/uL (1.20-3.40); #Monocytes 0.8 thou/uL (0.11-0.59); #Neutrophils 4.6 thou/uL (1.40-6.50); %Basophils 1.2 % (0.0-1.0); %Eosinophils 2.5 % (0.0-10.0); %Monocytes 9.8 % (0.0-10.0); %Neutrophils 54.5 % (42.0-75.0); Hemoglobin 16.2 g/dL (14.0-18.0); Mean Corpuscular HGB CONC 33.7 g/dL (32.0-36.0); Mean Corpuscular Hemoglobin 31.9 pg (27.0-31.0); Mean Corpuscular Volume 94.5 fL (78.0-98.0); Mean Platelet Volume 6.8 fL (7.4-10.4); Platelet Count 356 thou/uL (130-400); RBC Distribution Width 11.7 % (11.5-14.5); Red Blood Cell (RBC) Count 5.09 mill/uL (4.70-6.10); White Blood Cell (WBC) Count 8.5 thou/uL (4.8-10.8)
[2020-05-23 13:13] LABS: ALT (SGPT) 88 U/L (8-55); AST (SGOT) 40 U/L (5-34); Albumin 4.4 g/dL (3.5-5.0); Alkaline Phosphatase 100 U/L (40-110); Anion Gap 16 mmol/L (10-20); BUN (Urea Nitrogen) 9 mg/dL (8.9-20.6); Bilirubin, Total 0.5 mg/dL (0.2-1.2); Calc. Creatinine Clearance 0 mL/min (70-130); Calcium 9.5 mg/dL (7.8-10.44); Carbon Dioxide 22 mmol/L (22-29); Chloride 101 mmol/L (98-107); Globulin 3.4 g/dL (2.4-3.5); Glucose 114 mg/dL (70-105); Potassium 3.7 mmol/L (3.5-5.1); Protein, Total 7.8 g/dL (6.0-8.3); Sodium 135 mmol/L (136-145)
[2020-05-23] MEDS ORDERED: Ketorolac Tromethamine 30 MG/ML VIAL ONE (13:16)
== END 2020-05-23 14:23 | disposition home or self-care (01) ==
LOC: ERS 11:24
DX: M79.645 Pain in left finger(s) (principal); G90.511 Complex regional pain syndrome I of right upper limb; Z87.891 Personal history of nicotine dependence
CPT/HCPCS: 36415; 80053; 83605; 85025; 85652; 86140; 87040; 96372; J1885

== ENCOUNTER 2020-06-25 10:13 | Emergency (ER) | payer SELFPAY ==
--- NOTE | 2020-06-25 11:13 | RAD ---
EXAM: 3 views of the left thumb HISTORY: Amputation of the thumb in March with sharp pains at the amputation site COMPARISON: None FINDINGS: The patient is status post amputation of the thumb through the interphalangeal joint. There is no evidence of acute fracture or dislocation. No soft tissue swelling is seen. No degenerative changes are present. A very small metallic fragment is seen near the thenar webspace. IMPRESSION: No evidence of acute osseous abnormality.
[2020-06-25] MEDS ORDERED: Acetaminophen/Codeine 30-300mg Tablet ONE (11:23)
== END 2020-06-25 12:00 | disposition home or self-care (01) ==
LOC: ERS 10:13
DX: M79.645 Pain in left finger(s) (principal); Z87.891 Personal history of nicotine dependence

== ENCOUNTER 2021-09-25 21:45 | Emergency (ER) | payer SELFPAY ==
[2021-09-25] MEDS ORDERED: Acetaminophen/Codeine 30-300mg Tablet ONE (22:58)
== END 2021-09-25 23:40 | disposition home or self-care (01) ==
LOC: ERS 21:45
DX: L03.012 Cellulitis of left finger (principal); F17.210 Nicotine dependence, cigarettes, uncomplicated